=== PATIENT | female | born 1965 | race Caucasian/White ===

== ENCOUNTER 2019-07-25 18:46 | Emergency (ER) | payer OTHER, SELFPAY ==
[~2019-07-25] VITALS: Ht 165.1 cm; Wt 86.2 kg
[2019-07-25 18:54] VITALS: BP 161/85
[2019-07-25 20:17] VITALS: BP 161/85
== END 2019-07-25 20:17 | disposition home or self-care (01) ==
LOC: MED 18:46 → EEVIPCON 18:46 → MED 20:17
DX: N39.0 Urinary tract infection, site not specified (principal); I10 Essential (primary) hypertension; E07.9 Disorder of thyroid, unspecified; Z98.890 Other specified postprocedural states
CPT/HCPCS: 99283; U0003

== ENCOUNTER 2020-02-03 05:13 | Emergency (ER) | payer OTHER, SELFPAY ==
[~2020-02-03] VITALS: Ht 160 cm; Wt 86.2 kg
[2020-02-03 05:15] VITALS: BP 170/100
--- NOTE | 2020-02-03 05:18 | NUR ---
TO LOBBY A/W BED AMBULATORY
--- NOTE | 2020-02-03 06:20 | NUR ---
SEEN AND EXAMINED BY KALA , WITH ORDERS, CARRIED OUT
[2020-02-03] MEDS ORDERED: NACL 0.9% 1,000 ML IV ONE (06:25)
[2020-02-03] MEDS ORDERED: KETOROLAC 30 MG/ML VIAL IM ONE (07:35)
--- NOTE | 2020-02-03 07:40 | NUR ---
PT TAKEN TO [facility].
[2020-02-03 09:01] LABS: BASOPHILS # (AUTO) 0.1 K/uL (0.00-0.22); BASOPHILS % (AUTO) 1.5 % (0.0-2.0); EOSINOPHILS # (AUTO) 0.2 K/uL (0-0.4); EOSINOPHILS % (AUTO) 2.2 % (0.0-4.0); HEMOGLOBIN 12.2 g/dL (12.0-16.0); LYMPHOCYTES # (AUTO) 1.9 K/uL (2.5-16.5); LYMPHOCYTES % (AUTO) 24.7 % (20.5-51.1); MEAN CORPUSCULAR HEMOGLOBIN 31 pg (27-31); MEAN CORPUSCULAR HGB CONC 34 g/dL (33-37); MEAN CORPUSCULAR VOLUME 90.2 fL (80-94); MONOCYTES # (AUTO) 0.5 K/uL (0.8-1.0); MONOCYTES % (AUTO) 6.8 % (1.7-9.3); NEUTROPHILS # (AUTO) 4.9 K/uL (1.8-7.7); NEUTROPHILS % (AUTO) 64.8 % (42.2-75.2); PLATELET COUNT (AUTO) 275 K/uL (140-450); RED BLOOD CELL COUNT(AUTO) 3.99 MIL/uL (4.20-5.40); RED CELL DISTRIBUTION WIDTH 12.8 % (11.6-13.7); WHITE BLOOD COUNT (AUTO) 7.6 K/uL (4.8-10.8)
[2020-02-03 09:32] LABS: ANION GAP 12.6 (8-16); CARBON DIOXIDE 28.4 mmol/L (21-32); CREATININE 0.6 mg/dL (0.6-1.3)
[2020-02-03 09:55] VITALS: BP 165/94
--- NOTE | 2020-02-03 09:55 | NUR ---
Patient discharged with v/s stable. Written and verbal after care instructions given and explained. Patient alert, oriented and verbalized understanding of instructions. Ambulatory with steady gait. All questions addressed prior to discharge. ID band removed. Patient advised to follow up with PMD. Rx of Naprosyn, Flexeril, and Medrol pack given. Patient educated on indication of medication including possible reaction and side effects. Opportunity to ask questions provided and answered.
== END 2020-02-03 09:55 | disposition home or self-care (01) ==
LOC: MED 05:13
DX: M54.30 Sciatica, unspecified side (principal); R35.0 Frequency of micturition; I10 Essential (primary) hypertension; E07.9 Disorder of thyroid, unspecified
CPT/HCPCS: 36415; 74176; 80048; 81002; 85025; 96372; 99284; J1885

== ENCOUNTER 2020-06-04 17:33 | Emergency (ER) | payer OTHER, SELFPAY ==
[~2020-06-04] VITALS: Ht 160 cm; Wt 90.7 kg
[2020-06-04 17:37] VITALS: BP 204/135
--- NOTE | 2020-06-04 17:54 | NUR ---
Dr. Britton is evaluating the patient at bedside.
[2020-06-04] MEDS ORDERED: KETOROLAC 60 MG/2 ML VIAL IM ONE (18:00)
--- NOTE | 2020-06-04 18:01 | NUR ---
55/F presents to ED with c/o of lightheadedness and 7/10 dull frontal headache. Patient states she began to feel a tingling sensation in her hands 30 min prior to arrival to ED which then progressed to her whole body along with tremors, also states her body feels hot. Patient states she has felt the tingling in her hands and the headache before but today is worse. Patient denies abdominal pain, vomiting but states she does have nausea. Patient denies dysuria, hematuria. Patient stated she felt shortness of breath prior to arrival to ED but no longer feels SOB. 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
--- NOTE | 2020-06-04 18:20 | NUR ---
Patient taken to CT scan.
[2020-06-04] MEDS ORDERED: IBUP-2213 PO (18:58)
[2020-06-04] MEDS ORDERED: CIPR500T4 PO (18:58)
--- NOTE | 2020-06-04 19:07 | NUR ---
Patient discharged with v/s stable. Written and verbal after care instructions given and explained. Patient alert, oriented and verbalized understanding of instructions. Ambulatory with steady gait. All questions addressed prior to discharge. ID band removed. Patient advised to follow up with PMD. Rx of Ciprofloxacin, Ibuprofen given. Patient educated on indication of medication including possible reaction and side effects. Opportunity to ask questions provided and answered.
[2020-06-04 19:08] VITALS: BP 134/63
== END 2020-06-04 19:07 | disposition home or self-care (01) ==
LOC: MED 17:33
DX: R51.9 Headache, unspecified (principal); N39.0 Urinary tract infection, site not specified; I10 Essential (primary) hypertension; E07.9 Disorder of thyroid, unspecified
CPT/HCPCS: 70450; 81002; 96372; 99284; J1885

== ENCOUNTER 2020-06-17 23:00 | Emergency (ER) | payer OTHER, SELFPAY ==
[~2020-06-17] VITALS: Ht 157.5 cm; Wt 88.5 kg
[~2020-06-17 23:00] MED LIST: CIPR500T4 PO; IBUP-2213 PO
[2020-06-17 23:11] VITALS: BP 149/68
--- NOTE | 2020-06-17 23:11 | NUR ---
TO BED AMBULATORY
--- NOTE | 2020-06-17 23:30 | NUR ---
RT FOOT PAIN,SWELLING, S/P FALL LAST THURSDAY. +SWELLING ON RT FOOT. BURSING NOTED ON RT SECOND AND MIDDLE TOE. UNABLE TO BEAR WT ON RT FOOT. CMS INTACT ON BLE. PEDAL PULSES PRESENT BLE. UNABLE TO MOVE SECOND AND MIDDLE TOE D/T PAIN. CAP REFILL < 3. VSS. A&OX4. USES WALKER TO AMBULATE. DENIES ANY HEAD INJURY OR LOC. NKDA. PMH: DM, HYPOTHYROID, TOTAL THYROIDECTOMY.
--- NOTE | 2020-06-17 23:47 | NUR ---
RAD AT BEDSIDE
--- NOTE | 2020-06-17 23:53 | NUR ---
KALA STEIN AT BEDSIDE EVALUATING PT.
[2020-06-18] MEDS ORDERED: HYDROcodone/APAP 10/325 MG 1 TAB TAB PO ONE (00:15)
[2020-06-18] MEDS ORDERED: ACET-9527 PO (00:22)
[2020-06-18] MEDS ORDERED: IBUP-2218 PO (00:22)
[2020-06-18] MEDS ORDERED: HYDROcodone/APAP 10/325 MG 1 TAB TAB ONE (01:23)
--- NOTE | 2020-06-18 02:00 | NUR ---
PT AMBULATED TO BATHROOM WITH A STEADY GAIT. PAIN LEVEL DECREASED.
[2020-06-18 03:00] VITALS: BP 124/66
--- NOTE | 2020-06-18 03:00 | NUR ---
Patient discharged with v/s stable. Written and verbal after care instructions given and explained. Patient alert, oriented and verbalized understanding of instructions. Ambulatory with CRUTCHES AND HAS steady gait. All questions addressed prior to discharge. ID band removed. Patient advised to follow up with PMD. Rx of NORCO given. Patient educated on indication of medication including possible reaction and side effects. Opportunity to ask questions provided and answered.
== END 2020-06-18 03:00 | disposition home or self-care (01) ==
LOC: MED 23:00
DX: S92.811A Other fracture of right foot, initial encounter for closed fracture (principal); I10 Essential (primary) hypertension; E07.9 Disorder of thyroid, unspecified; Z85.850 Personal history of malignant neoplasm of thyroid; Z79.899 Other long term (current) drug therapy; W22.8XXA Striking against or struck by other objects, initial encounter; Y93.89 Activity, other specified; Y92.89 Other specified places as the place of occurrence of the external cause; Y99.8 Other external cause status
CPT/HCPCS: 29515; 73630; 73660; 99284

== ENCOUNTER 2020-09-06 06:38 | Emergency (ER) | payer OTHER, SELFPAY ==
[~2020-09-06] VITALS: Ht 160 cm; Wt 93.9 kg
[~2020-09-06 06:38] MED LIST changes: +ACET-9527 PO; +IBUP-2218 PO
[2020-09-06 06:46] VITALS: BP 170/104
--- NOTE | 2020-09-06 06:52 | NUR ---
PT TAKEN TO BED 7
--- NOTE | 2020-09-06 06:53 | NUR ---
PATIENT AMBUALTED TO RESTROOM WITH STEADY GAIT.
--- NOTE | 2020-09-06 07:01 | NUR ---
Dr. Stratton examining patient.
--- NOTE | 2020-09-06 07:03 | NUR ---
Lalito sepulveda in [facility] - 09/06/20 at 0808 by [id number] URINE AND BLOOD SAMPLES COLLECTED AND SENT TO LAB.
[2020-09-06] MEDS ORDERED: HYDROcodone/APAP 5/325 MG 1 TAB TAB PO ONE (07:05)
[2020-09-06] MEDS ORDERED: ONDANSETRON 4 MG ODT PO ONE (07:05)
--- NOTE | 2020-09-06 07:10 | NUR ---
55 Y/O FEMALE BIB SELF FOR C/O RLQ ABDOMINAL PAIN 11/18. INTERMITTENT X 3 WEEKS BUT CONSTANT SINCE 0200 TODAY. PT HAD X1 EPISODE OF N/V PRIOR TO COMING. ABD IS SOFT AND TENDER ON PALPATION. PT A/O X4 WITH EVEN AND UNLABORED RESPIRATIONS. PT GIVEN EMESIS BAG. PT LAYING IN BED WITH BED IN LOWEST POSITION, BRAKES LOCKED, X1 SIDERAIL UP. MEDHX: HYPOTHYROID, HTN NKA
--- NOTE | 2020-09-06 07:17 | NUR ---
PT TAKEN TO CT VIA W/C
--- NOTE | 2020-09-06 07:22 | NUR ---
PT BACK FROM CT
--- NOTE | 2020-09-06 07:25 | NUR ---
URINE AND BLOOD SAMPLES COLLECTED AND SENT TO LAB.
[2020-09-06 08:14] LABS: BASOPHILS # (AUTO) 0.1 K/uL (0.00-0.22); BASOPHILS % (AUTO) 1.7 % (0.0-2.0); EOSINOPHILS # (AUTO) 0.2 K/uL (0-0.4); EOSINOPHILS % (AUTO) 2.6 % (0.0-4.0); HEMATOCRIT 36.1 % (36-48); HEMOGLOBIN 12.5 g/dL (12.0-16.0); LYMPHOCYTES # (AUTO) 1.6 K/uL (2.5-16.5); LYMPHOCYTES % (AUTO) 19.4 % (20.5-51.1); MEAN CORPUSCULAR HEMOGLOBIN 32 pg (27-31); MEAN CORPUSCULAR HGB CONC 35 g/dL (33-37); MEAN CORPUSCULAR VOLUME 91.3 fL (80-94); MONOCYTES # (AUTO) 0.4 K/uL (0.8-1.0); MONOCYTES % (AUTO) 5.4 % (1.7-9.3); NEUTROPHILS # (AUTO) 5.8 K/uL (1.8-7.7); NEUTROPHILS % (AUTO) 70.9 % (42.2-75.2); PLATELET COUNT (AUTO) 337 K/uL (140-450); RED BLOOD CELL COUNT(AUTO) 3.96 MIL/uL (4.20-5.40); RED CELL DISTRIBUTION WIDTH 12.9 % (11.6-13.7); WHITE BLOOD COUNT (AUTO) 8.1 K/uL (4.8-10.8)
--- NOTE | 2020-09-06 08:20 | NUR ---
Ultrasound at bedside.
[2020-09-06 08:29] LABS: APPEARANCE,URINE CLEAR (CLEAR); BILIRUBIN,URINE NEGATIVE (NEGATIVE); BLOOD, URINE TRACE-I (NEGATIVE); COLOR,URINE YELLOW (YELLOW); LEUKOCYTE ESTERASE ,URINE NEGATIVE (NEGATIVE); NITRITE, URINE NEGATIVE (NEGATIVE); UGLUCOSE NEGATIVE (NEGATIVE)
[2020-09-06 08:34] LABS: ALBUMIN 3.7 g/dL (3.4-5.0); ANION GAP 13.3 (8-16); CARBON DIOXIDE 27.3 mmol/L (21-32); CREATININE 0.7 mg/dL (0.6-1.3); POTASSIUM 3.6 mmol/L (3.5-5.1); TOTAL BILIRUBIN 0.5 mg/dL (0.0-1.0)
[2020-09-06 08:39] LABS: RBC,URINE 0-5 /HPF (0-5); WBC,URINE 0-5 /HPF (0-5)
--- NOTE | 2020-09-06 09:45 | NUR ---
PT SLEEPING IN BED WITH EVEN AND UNLABORED RESPIRATIONS. BED IN LOWEST POSITION, BRAKES LOCKED, X1 SIDERAIL UP. WILL CONTINUE TO MONITOR.
[2020-09-06] MEDS ORDERED: MIRABULK PO (09:54)
[2020-09-06] MEDS ORDERED: ONDA-24 PO (09:54)
[2020-09-06] MEDS ORDERED: ACET-8386 PO (09:54)
--- NOTE | 2020-09-06 10:21 | NUR ---
Patient discharged with v/s stable. Written and verbal after care instructions ABOUT OVARIAN CYST AND CONSTIPATION given and explained. Patient alert, oriented and verbalized understanding of instructions. Ambulatory with steady gait. All questions addressed prior to discharge. ID band removed. Patient advised to follow up with PMD. Rx of NORCO 5-325MG, ZOFRAN, AND MIRALAX given. Patient educated on indication of medication including possible reaction and side effects. Opportunity to ask questions provided and answered.
[2020-09-06 10:22] VITALS: BP 165/101
== END 2020-09-06 10:21 | disposition home or self-care (01) ==
LOC: MED 06:38
DX: N83.209 Unspecified ovarian cyst, unspecified side (principal); K59.00 Constipation, unspecified; R11.2 Nausea with vomiting, unspecified; I10 Essential (primary) hypertension; E07.9 Disorder of thyroid, unspecified; Z85.850 Personal history of malignant neoplasm of thyroid; Z79.899 Other long term (current) drug therapy
CPT/HCPCS: 36415; 74176; 76830; 76856; 80053; 81001; 83690; 85025; 93976; 99285; Q0162

== ENCOUNTER 2021-06-05 13:46 | Emergency (ER) | payer OTHER ==
[~2021-06-05] VITALS: Ht 157.5 cm; Wt 90.7 kg
[~2021-06-05 13:46] MED LIST changes: +ACET-8386 PO; +MIRABULK PO; +ONDA-188 PO
[2021-06-05 14:02] VITALS: BP 165/103
--- NOTE | 2021-06-05 14:39 | NUR ---
PT AMBULATED TO BED 12, STEADY GAIT
--- NOTE | 2021-06-05 15:00 | NUR ---
56 Y/O FEMALE BIB SELF C/O 8/10 EYE PAIN AFTER RIGHT EYE WAS SPLASHED BY CHLOROX, STATED THAT SHE HAD WASHED EYE WITH WATER. SLIGHT REDNESS NOTED IN THE AREA. NKA HTN, THYROIDECTOMY
[2021-06-05] MEDS ORDERED: FLUORESCEIN OPTH STRIP 1 MG OP ONE (15:45)
[2021-06-05] MEDS ORDERED: TETRACAINE HCL/PF 0.5% OPTH 4 ML BTL OP ONE (15:55)
--- NOTE | 2021-06-05 16:01 | NUR ---
PATIENT AT EYE WASH STATION
[2021-06-05 16:20] VITALS: BP 149/109
[2021-06-05] MEDS ORDERED: ACET-8386 PO (16:28)
[2021-06-05] MEDS ORDERED: IBUP-2213 PO (16:28)
--- NOTE | 2021-06-05 16:56 | NUR ---
Patient discharged with v/s stable. Written and verbal after care instructions ABOUT CHEMICAL CONJUNCTIVITIS given and explained. Patient alert, oriented and verbalized understanding of instructions. Ambulatory with steady gait. All questions addressed prior to discharge. ID band removed. Patient advised to follow up with PMD. Rx of HYDROCODONE-ACETAMINOPHEN 5-325 AND IBUPROFEN given. Patient educated on indication of medication including possible reaction and side effects. Opportunity to ask questions provided and answered.
== END 2021-06-05 16:56 | disposition home or self-care (01) ==
LOC: MED 13:46
DX: H10.211 Acute toxic conjunctivitis, right eye (principal); R11.0 Nausea; I10 Essential (primary) hypertension; E03.9 Hypothyroidism, unspecified; Z79.899 Other long term (current) drug therapy; Z98.890 Other specified postprocedural states
CPT/HCPCS: 99283

== ENCOUNTER 2021-10-03 19:07 | Emergency (ER) | payer OTHER ==
[~2021-10-03] VITALS: Ht 157.5 cm; Wt 90.3 kg
[2021-10-03 19:16] VITALS: BP 147/87
[2021-10-03] MEDS ORDERED: MORPHINE SULFATE 4 MG/ML SYR IM ONE (20:35)
[2021-10-03] MEDS ORDERED: NAPR-54 PO (23:08)
[2021-10-03 23:17] VITALS: BP 131/78
== END 2021-10-03 23:15 | disposition home or self-care (01) ==
LOC: MED 19:07
DX: M54.31 Sciatica, right side (principal); I10 Essential (primary) hypertension; Z90.89 Acquired absence of other organs
CPT/HCPCS: 96372; 99283; J2270

== ENCOUNTER 2021-10-20 14:22 | Inpatient (IN) | payer OTHER ==
[~2021-10-20] VITALS: Ht 157.5 cm; Wt 89.8 kg
[~2021-10-20 14:22] MED LIST changes: +NAPR-54 PO
[2021-10-20 14:29] VITALS: BP 118/74
--- NOTE | 2021-10-20 14:33 | NUR ---
Pt ambulated to bed 12.
--- NOTE | 2021-10-20 15:00 | NUR ---
PT ON WITH TELENEURO
[2021-10-20 15:42] LABS: BASOPHILS # (AUTO) 0.1 K/uL (0.00-0.22); BASOPHILS % (AUTO) 1.2 % (0.0-2.0); EOSINOPHILS # (AUTO) 0.2 K/uL (0-0.4); HEMATOCRIT 38.5 % (36-48); HEMOGLOBIN 13.2 g/dL (12.0-16.0); LYMPHOCYTES # (AUTO) 3.1 K/uL (2.5-16.5); LYMPHOCYTES % (AUTO) 27.5 % (20.5-51.1); MEAN CORPUSCULAR HEMOGLOBIN 31 pg (27-31); MEAN CORPUSCULAR HGB CONC 34 g/dL (33-37); MEAN CORPUSCULAR VOLUME 90.2 fL (80-94); MONOCYTES # (AUTO) 0.8 K/uL (0.8-1.0); MONOCYTES % (AUTO) 6.9 % (1.7-9.3); NEUTROPHILS % (AUTO) 62.4 % (42.2-75.2); PLATELET COUNT (AUTO) 322 K/uL (140-450); RED BLOOD CELL COUNT(AUTO) 4.27 MIL/uL (4.20-5.40); RED CELL DISTRIBUTION WIDTH 13.5 % (11.6-13.7); WHITE BLOOD COUNT (AUTO) 11.2 K/uL (4.8-10.8)
[2021-10-20 16:00] LABS: ALBUMIN 3.5 g/dL (3.4-5.0); ANION GAP 12.1 (8-16); CREATININE 0.7 mg/dL (0.6-1.3); POTASSIUM 4.1 mmol/L (3.5-5.1); TOTAL BILIRUBIN 0.3 mg/dL (0.0-1.0)
[2021-10-20] MEDS ORDERED: KETOROLAC 30 MG/ML VIAL IVP ONE (19:15)
[2021-10-20] MEDS ORDERED: ACETAMINOPHEN 325 MG TAB PO PRN (20:20)
[2021-10-20] MEDS ORDERED: ONDANSETRON 4 MG/2 ML VIAL IVP PRN (20:20)
[2021-10-20] MEDS ORDERED: MORPHINE SULFATE 2 MG/ML SYR IVP PRN (20:20)
[2021-10-20] MEDS ORDERED: SYN.075 PO (20:42)
[2021-10-20] MEDS ORDERED: LOSA100T1 PO (20:42)
--- NOTE | 2021-10-20 20:42 | NUR ---
MED RECON COMPLETE. NO WOUNDS PER BODY CHECK. FELIBERTO COLLECTED.
[2021-10-20] MEDS ORDERED: KETOROLAC 30 MG/ML VIAL ONE (20:46)
[2021-10-20] MEDS ORDERED: ASPIRIN 325 MG TABEC PO ONE (20:46)
[2021-10-20] MEDS: ASPIRIN 325 MG TABEC PO SCH (20:50)
--- NOTE | 2021-10-20 20:57 | NUR ---
SPOKE TO DR. KING INFORMED WE DONT HAVE MRI HERE, THEREFORE IT CAN BE ARRANGED FOR TOMORROW MORNING. HE STATED THATS FINE.
--- NOTE | 2021-10-20 23:02 | NUR ---
PT MOVED TO BED 8
--- NOTE | 2021-10-20 23:05 | NUR ---
HANDOFF RECIEVED FROM GINA MAGAÑA. ASSUMED CARE AT THIS TIME. PT SEEN WITH EYES CLOSED, VISIBLE CHEST RISE AND FALL NOTED. ALL NEEDS MET AT THIS TIME.
--- NOTE | 2021-10-21 01:13 | NUR ---
Patient appears to be resting comfortably in bed. Respirations even and unlabored.
--- NOTE | 2021-10-21 05:32 | NUR ---
PT AMBULATED TO RESTROOM UNASSISTED
--- NOTE | 2021-10-21 07:12 | NUR ---
HANDOFF REPORT GIVEN TO CINTIA MCMULLEN. TX OF CARE AT THIS TIME.
--- NOTE | 2021-10-21 07:13 | NUR ---
REPORT RECEIVED FROM DONNA FUENTES. ASSUMED CARE AT THIS TIME.
[2021-10-21 07:35] LABS: BASOPHILS # (AUTO) 0.1 K/uL (0.00-0.22); BASOPHILS % (AUTO) 1.8 % (0.0-2.0); EOSINOPHILS # (AUTO) 0.2 K/uL (0-0.4); EOSINOPHILS % (AUTO) 2.1 % (0.0-4.0); HEMATOCRIT 38.1 % (36-48); HEMOGLOBIN 13.1 g/dL (12.0-16.0); LYMPHOCYTES # (AUTO) 2.4 K/uL (2.5-16.5); LYMPHOCYTES % (AUTO) 30.7 % (20.5-51.1); MEAN CORPUSCULAR HEMOGLOBIN 31 pg (27-31); MEAN CORPUSCULAR HGB CONC 34 g/dL (33-37); MEAN CORPUSCULAR VOLUME 91.3 fL (80-94); MONOCYTES # (AUTO) 0.6 K/uL (0.8-1.0); MONOCYTES % (AUTO) 7.3 % (1.7-9.3); NEUTROPHILS # (AUTO) 4.6 K/uL (1.8-7.7); NEUTROPHILS % (AUTO) 58.1 % (42.2-75.2); PLATELET COUNT (AUTO) 303 K/uL (140-450); RED BLOOD CELL COUNT(AUTO) 4.17 MIL/uL (4.20-5.40); RED CELL DISTRIBUTION WIDTH 13.4 % (11.6-13.7); WHITE BLOOD COUNT (AUTO) 7.8 K/uL (4.8-10.8)
[2021-10-21 07:38] LABS: ANION GAP 12.9 (8-16); CARBON DIOXIDE 25.9 mmol/L (21-32); CREATININE 0.6 mg/dL (0.6-1.3); POTASSIUM 3.8 mmol/L (3.5-5.1)
--- NOTE | 2021-10-21 08:24 | NUR ---
Patient will be admitted to care of SHAIKH GINA. Admited to TELE. Will go to room 104 B. Belongings list completed. Report to SIXTO CHAMBERLAIN.
[2021-10-21 08:30] VITALS: BP 158/99
--- NOTE | 2021-10-21 08:30 | NUR ---
PATIENT ON A GURNEY WHEELED BY 2 ER STAFF AT UNIT. PATIENT ALERT ORIENTED ABLE TO MAKE NEEDS KNOWN RESPIRATION EVEN AND NOT LABORED NO SHORTNESS OF BREATH ON ROOM AIR. IV SITE ON LEFT AC FELA 20 SALINE LOCK. PATIENT STATED SHE HAD HEAD ACHE 8/10 BUT NO NEED A FOR MEDICATION AT THIS TIME . ORIENTED TO ROOM CALL LIGHT AND TOILET. ALL SAFETY MEASURE IN PLACE.
[2021-10-21] MEDS: ASPIRIN 325 MG TABEC PO SCH (09:32)
--- NOTE | 2021-10-21 09:32 | NUR ---
Patient's Plan of Care was discussed and reviewed with SINK MAKER: Addendum: 10/21/21 at 1354 by Birgit Teresa RN RN COVERAGE CHANGED TO BIRGIT FUENTES.
--- NOTE | 2021-10-21 10:10 | NUR ---
REVIEWED AND DISCUSSED PLAN OF CARE WITH SIXTO GAINES PT IN STABLE CONDITION.
[2021-10-21 12:00] VITALS: BP 127/75
--- NOTE | 2021-10-21 13:52 | NUR ---
DC PLANNING: PATIENT HAS AN ORDER FOR MRI OF THE BRAIN WITH OUT CONTRAST. CALLED [facility] SPOKE WITH RAYO ROSALES TO SEND PATENT TO [facility], WAIT AND RETURN ARRANGED TRANSPORT WITH [facility] QUOTATION CLERK TIME 2:30 PM NOTIFIED SIXTO CHAMBERLAIN. Addendum: 10/23/21 at 1128 by Jodie Bauer RN DC PLANNING: SEEN BY DR COSTA NEUROLOGIST CLEARED PATIENT AND RECOMMENDED NO LONGER ABLE TO DRIVE DUE TO SIGNIFICANT EFFECT ON VISION, CARDIO TO EVALUATE. SEEN BY AUTOMATION SALES MANAGER DR MASCORRO ORDERED ECHO NO EVIDENCE OF A-FIB. STABLE FOR DISCHARGE. CM TO FOLLOW.
--- NOTE | 2021-10-21 14:35 | NUR ---
PATIENT EVALUATOR TRANSFER STUDENTS BY [facility] TRANSPORTATION TO BE TRANSFER TO [facility] FOR MRI. PATIENT ALERT ORIENTED NO DISTRESS NOTED. REMOVED THE HEART MONITOR. ALL HER BELONGING LEFT ON HER ROOM FOR SAFE KEEPING.
[2021-10-21 16:00] VITALS: BP 144/82
--- NOTE | 2021-10-21 16:24 | NUR ---
PATIENT BACK FORM [facility] ON STABLE CONDITION.
[2021-10-21] MEDS: APAP/BUTAL/CAFF 325/50/40 MG 1 TAB PO PRN (18:48)
--- NOTE | 2021-10-21 19:23 | NUR ---
GAVE REPORT TO DEPUTY FIRE MARSHAL NURSE FOR CONTINUITY OF CARE. RCEIVED MRI RESULT LEFT MESSAGE TO DR. MELO WAITING FOR RESPONSE.
--- NOTE | 2021-10-21 19:25 | NUR ---
RECEIVED PATIENT IN BED, AWAKE,ALERT AND ORIENTED. 2/10 HEADACHE PER PT NO NEED FOR PAIN MEDICATION AT THIS TIME. DENIES SHORTNESS OF BREATH. SKIN WARM AND DRY TO TOUCH. BED IN THE LOWEST AND LOCKED POSITION FOR SAFETY, CALL LIGHT IN REACH, ENCOURAGED TO CALL IF ASSISTANCE IS NEEDED.
--- NOTE | 2021-10-21 19:48 | NUR ---
RELAYED RESULT OF MRI OF THE BRAIN TO DR. WILHELM, NO NEW ORDER, WILL SEE PT IN AM.
[2021-10-21 20:00] VITALS: BP 139/87
--- NOTE | 2021-10-21 22:48 | NUR ---
CURRENTLY RESTING IN BED. NO DISTRESS NOTED. CALL LIGHT IN REACH.
[2021-10-22] VITALS: BP 122/77
[2021-10-22] MEDS: APAP/BUTAL/CAFF 325/50/40 MG 1 TAB PO PRN ×3 (00:13→21:19)
--- NOTE | 2021-10-22 00:13 | NUR ---
COMPLAINING OF 5/10 HEADACHE, MEDICATION GIVEN ORDERED. VITAL SIGNS WITHIN NORMAL LIMITS. CALL LIGHT IN REACH.
--- NOTE | 2021-10-22 01:13 | NUR ---
RE-ASSESSED FOR PAIN, PATIENT IS ASLEEP. NO S/SX OF PAIN NOR DISCOMFORT. CALL LIGHT WITHIN REACH.
[2021-10-22 04:00] VITALS: BP 131/82
--- NOTE | 2021-10-22 05:30 | NUR ---
ACCOMPANIED PATIENT TO CT SCAN ORDERED, TOLERATED PROCEDURE WELL. MADE COMFORTABLE IN BED. CALL LIGHT IN REACH. Addendum: 10/22/21 at 0625 by Kathleen Cook RN WRONG PATIENT.
[2021-10-22] MEDS: LEVOTHYROXINE 0.075 MG TAB PO SCH (05:47)
--- NOTE | 2021-10-22 06:20 | NUR ---
PATIENT ASLEEP. ALL NEEDS ATTENDED TO. NO S/SX OF PAIN NOR DISCOMFORT. SAFETY PRECAUTION MAINTAINED DURING THE SHIFT, CALL LIGHT REMAINED WITHIN REACH.
--- NOTE | 2021-10-22 07:03 | NUR ---
RECEIVED REPORT FROM RECORD CLERK SALESPERSON NURSE FOR CONTINUITY OF CARE PATIENT ASLEEP NO DISTRESS NOTED. RESPIRATION EVEN AND NOT LABORED NO SHORTNESS OF BREATH ON ROOM AIR. IV SITE ON LEFT AC FELA 20 SALINE LOCK. CALL LIGHT WITH IN EASY REACH.
[2021-10-22 08:00] VITALS: BP 138/81
[2021-10-22] MEDS: ASPIRIN 325 MG TABEC PO SCH (08:39)
--- NOTE | 2021-10-22 08:42 | NUR ---
PATIENT GIVEN HER ASPIRIN ORDERED. COMPLAIN OF HEADACHE TOO MUCH BUT REFUSED MORPHINE GIVEN MIGRAINE MEDICATION TOLERATED WELL. INFORM THAT DOCTOR WILL BE HERE TO TALK TO HER REGARDING THE MRI REPORT.
--- NOTE | 2021-10-22 08:53 | NUR ---
PATIENT HAS BEEN SCREENED AND CATEGORIZED LOW NUTRITION RISK. PATIENT WILL BE SEEN WITHIN 7 DAYS OF ADMISSION. 10/27/21 REVIEWED BY JOHN HOLLAND RD
[2021-10-22] MEDS ORDERED: MORPHINE SULFATE 2 MG/ML SYR IVP PRN (10:10)
--- NOTE | 2021-10-22 10:40 | NUR ---
PATIENT ON BED RESTING PATIENT SAID I'M OKAY JUST RESTING. CALL LIGHT WITH IN EASY REACH.
[2021-10-22 12:00] VITALS: BP 151/95
--- NOTE | 2021-10-22 12:30 | NUR ---
PATIENT LUNCH GIVEN AND INFORM THAT WE ARE JUST WAITING FOR DR. MASCORRO TO CLEAR HER AND SHE WILL BE DICHARGE VERBALIZED UNDERSTANDING. CALL LIGHT WITH IN EASY REACH. DENIES PAIN OR DISCOMFORT. PATIENT HAS BEED USING INCENTIVE SPIROMETER.
--- NOTE | 2021-10-22 13:31 | NUR ---
COMPLAIN OF PAIN MEDICATED ORDERED.
[2021-10-22] MEDS ORDERED: IBUPROFEN 600 MG TAB PO PRN (13:45)
[2021-10-22] MEDS: ATORVASTATIN 80 MG TAB PO SCH (15:27)
[2021-10-22] MEDS: LOSARTAN 50 MG TAB PO SCH (15:27)
--- NOTE | 2021-10-22 15:30 | NUR ---
PATIENT ON BED JUST FINISH ECHO COMPLAIN OF HEAD AND EYE PAIN MEDICATED ORDER ALSO GIVEN ATORVASTATIN AND LOSARTAN ORDER. TOLERATED WELL. CALL LIGHT WITH IN EASY REACH.
[2021-10-22 15:48] LABS: CHOL/HDL RATIO 3.3 (1-4.5); THYROID STIMULATING HORMONE 4.22 uIU/mL (0.34-3.74)
[2021-10-22 16:00] VITALS: BP 149/93
--- NOTE | 2021-10-22 16:29 | NUR ---
P.T. NOTES P.T. EVAL COMPLETED; REFER TO EVAL FOR DETAILS.
--- NOTE | 2021-10-22 19:01 | NUR ---
PATIENT ALERT ON BED SITTING VISITOR AT BED SIDE NO DISTRESS NOTED. CALL LIGHT WITH IN EASY REACH.
--- NOTE | 2021-10-22 19:28 | NUR ---
RECEIVED ENDORSEMENT FROM DAY SHIFT NURSE FOR CONTINUITY OF CARE. PT IS AWAKE, ALERT AND VERBALLY RESPONSIVE, ABLE TO MAKE NEEDS KNOWN, FAMILY () ON BED SIDE. IV SALINE LOCK ON LEFT AC 20G INTACT AND PATENT. RESPIRATION EVEN, ON ROOM AIR. NO SOB OR DISTRESS. PT IS CONTINENT. PT COMPLAINT OF TOLERABLE PAIN ON LEFT HEAD. PT CONSUMED 80% OF DINNER. CONTINUE TO MONITOR.
--- NOTE | 2021-10-22 19:29 | NUR ---
GAVE REPORT TO MENTAL HEALTH NURSE NURSE FOR CONTINUITY OF CARE.
[2021-10-22 20:00] VITALS: BP 138/72
--- NOTE | 2021-10-22 21:19 | NUR ---
PT COMPLAINTS OF HEADACHE AND REQUEST OF PAIN MED. PT REFUSED TO TAKE MORPHINE FOR PAIN, SHE DOES NOT LIKE THE SIDE REACTION, MAKE HER DROWSY. PT AGREE TO TAKE FIORICET FOR MIGRAINE. PT DENIED OF NAUSEA.
--- NOTE | 2021-10-22 22:19 | NUR ---
PT VERBALIZED OF FEELING BETTER AND HEADACHE IS DECREASE.
[2021-10-23] VITALS: BP 119/65
--- NOTE | 2021-10-23 01:00 | NUR ---
PT IS ASLEEP. NO NOTED SOB OR DISTRESS.
[2021-10-23 04:00] VITALS: BP 105/55
[2021-10-23] MEDS: LEVOTHYROXINE 0.075 MG TAB PO SCH (06:25)
--- NOTE | 2021-10-23 06:25 | NUR ---
PT TAKING MORNING MEDS WITH NO PROBLEM, NO SWALLOWING PROBLEM.
--- NOTE | 2021-10-23 07:10 | NUR ---
PT IS ON STABLE CONDITION. IV SALINE LOCK ON LEFT AC 20G INTACT AND PATENT. SKIN INTACT AND WARM. PT DENIES OF PAIN/DISCOMFORT OR HEADACHE AT THIS TIME. DENIES OF CHEST PAIN, NAUSEA OR VOMITING. NO CHANGE OF CONDITION. ALL SAFETY MEASURES ARE IN PLACE. ENDORSE TO DAY SHIFT NURSE FOR CONTINUITY OF CARE.
--- NOTE | 2021-10-23 07:17 | NUR ---
RECEIVED REPORT FROM BUNK HOUSE WORKER NURSE LUIS FOR CONTINUITY OF CARE. PATIENT ASLEEP NO DISTRESS NOTED. RESPIRATION EVEN AND NOT LABORED NO SHORTNESS OF BREATH ON ROOM AIR. PATIENT IV SITE ON LEFT AC FELA 20 SALINE LOCK. ALL SAFETY MEASURE IN PLACE.
[2021-10-23 08:00] VITALS: BP 115/75
--- NOTE | 2021-10-23 08:00 | NUR ---
Patient's Plan of Care was discussed and reviewed with EQUIPMENT MAINTENANCE TECH:SIXTO
[2021-10-23] MEDS: APAP/BUTAL/CAFF 325/50/40 MG 1 TAB PO PRN (08:33)
[2021-10-23] MEDS: LOSARTAN 50 MG TAB PO SCH (08:33)
[2021-10-23] MEDS: ATORVASTATIN 80 MG TAB PO SCH (08:34)
--- NOTE | 2021-10-23 08:36 | NUR ---
PATIENT GIVEN MEDIATION AND COMPLAINOFHEAD ACHE AND I PAIN MEDICATED ORDERED.
[2021-10-23] MEDS ORDERED: ECOTRIN 81 MG TABEC PO SCH (09:00)
[2021-10-23] MEDS ORDERED: diphenhydrAMINE 50 MG/ML VIAL IVP SCH (10:10)
[2021-10-23] MEDS ORDERED: ONDANSETRON 4 MG/2 ML VIAL IVP SCH (10:10)
[2021-10-23] MEDS ORDERED: KETOROLAC 15 MG/ML VIAL IVP SCH (10:10)
[2021-10-23] MEDS ORDERED: LIP80 PO (10:15)
[2021-10-23] MEDS ORDERED: ASPI-1856 PO (10:15)
--- NOTE | 2021-10-23 10:30 | NUR ---
Inform patient that she has discharge order. Patient very happy to hear that and she said she want to go at 12noon so he have time for her son to pick her up.
[2021-10-23 10:36] VITALS: BP 115/75
--- NOTE | 2021-10-23 11:23 | NUR ---
GIVEN PATIENT DISCHARGE PACKET WITH INSTRUCTION VERBALIZED UNDERSTANDING AND PATIENT SIGNED. GETTING READY FOR HER FIELD MAP TECHNICIAN.
--- NOTE | 2021-10-23 12:40 | NUR ---
PATIENT NAME BAND AND IV REMOVED WITH CATHETER INTACT. AFTER SHE ATE PATIENT WHEELED OUTSIDE TO HER DAUGHTER PRIVATE VEHICLE SAFELY. PATIENT ALERT ORIENTED ON STABLE CONDITION.
== END 2021-10-23 12:42 | disposition home or self-care (01) | DRG 45 ==
LOC: MED 14:22 → MTU 20:23 → EEVIPCON 20:23 → OBSVTOIN 20:23 → MTU 10-21 05:24
PROVIDERS: ADMIT Hospitalist; ATTEND Hospitalist
DX: I63.439 Cerebral infarction due to embolism of unspecified posterior cerebral artery (principal); D72.829 Elevated white blood cell count, unspecified; I10 Essential (primary) hypertension; Z20.822 Contact with and (suspected) exposure to COVID-19; E03.9 Hypothyroidism, unspecified; Z79.891 Long term (current) use of opiate analgesic; Z79.899 Other long term (current) drug therapy; Z79.1 Long term (current) use of non-steroidal anti-inflammatories (NSAID)
CPT/HCPCS: 36415; 71045; 80048; 80053; 83036; 83735; 83880; 84443; 84484; 85025; 85651; 86140; 87081; 93005; 97116; 97163-GP; J1885; J2270; Q9967